=== PATIENT | female | born 1960 ===

== ENCOUNTER 2017-03-12 07:58 | Outpatient (CLI) | payer OTHER | END 2017-03-12 07:59 | disposition home or self-care (01) | LOC: LAB.WCP 07:58 | PROVIDERS: ATTEND Family Medicine | DX: N39.0 Urinary tract infection, site not specified (principal) | CPT/HCPCS: 87086 ==

== ENCOUNTER 2019-02-23 09:00 | Outpatient (CLI) | payer OTHER ==
--- NOTE | 2019-02-24 13:31 | XRAY Report ---
Reason: RIGHT FOOT PAIN Procedure Date: 02/23/2019 Accession Number: [id number] / [id number] Procedure: WCP - Foot 3 View RT CPT Code: FULL RESULT: EXAM: RIGHT FOOT RADIOGRAPHY EXAM DATE: 02/23/2019 02:04 PM. CLINICAL HISTORY: Right foot pain. COMPARISON: None. TECHNIQUE: 3 views. FINDINGS: Bones: Normal. No fractures or bone lesions. Joints: Normal. No subluxations. Soft Tissues: Normal. No soft tissue swelling. IMPRESSION: Normal foot radiography. [facility]
== END 2019-02-23 23:59 | disposition home or self-care (01) ==
LOC: DI.WCP 09:00 → EDSTATUS 13:28 → DI.WCP 23:59
PROVIDERS: ATTEND Family Medicine
DX: M79.671 Pain in right foot (principal)